=== PATIENT | male | born 1955 | race Caucasian/White ===

== ENCOUNTER → 2023-11-18 08:12 | Outpatient (REF) | payer OTHER, MEDICARE, SELFPAY ==
--- NOTE | 2023-11-18 09:35 | CARDSERVLU ---
Echocardiogram with Lumason completed after protocol screening completed. Allergies verified.
Patent IV site: _Left forearm 22 g PC inserted by IV team, site clear____
IV site flushed with 0.9% NaCl pre and post administration.
Diluted bolus method utilized to enhance visualization of ventricular gordon.
Total volume given: __2__ mL
Patient tolerated all procedures well without complications.
Heplock D/[place] at 0930, site clear, no redness, no edema. Pressure held, no bleeding, 2x2 applied and taped. No change in status.
== END ==
LOC: RCS 08:12
PROVIDERS: ATTENDING PHYSICIAN Internal Medicine Cardiovascular Disease; FAMILY PHYSICIAN Internal Medicine
DX: I23.6 Thrombosis of atrium, auricular appendage, and ventricle as current complications following acute myocardial infarction (principal)
CPT/HCPCS: 93307; Q9957

== ENCOUNTER → 2024-05-12 06:44 | Outpatient (REF) | payer OTHER, MEDICARE, SELFPAY | LOC: EMG 06:44 | PROVIDERS: ATTENDING PHYSICIAN Physician Assistant; FAMILY PHYSICIAN Nurse Practitioner Family | DX: M54.16 Radiculopathy, lumbar region (principal) | CPT/HCPCS: 95886; 95911 ==

== ENCOUNTER → 2024-07-14 11:35 | Outpatient (REF) | payer OTHER, MEDICARE, SELFPAY | LOC: DHCBC/DCA 11:35 | PROVIDERS: ATTENDING PHYSICIAN Internal Medicine; FAMILY PHYSICIAN Nurse Practitioner Family | DX: I25.118 Atherosclerotic heart disease of native coronary artery with other forms of angina pectoris (principal) | CPT/HCPCS: 78452; 93017; A9500; J2785 ==

== ENCOUNTER → 2024-07-15 14:21 | Outpatient (REF) | payer OTHER, MEDICARE, SELFPAY | LOC: RCS 14:21 | PROVIDERS: ATTENDING PHYSICIAN Internal Medicine | DX: I25.118 Atherosclerotic heart disease of native coronary artery with other forms of angina pectoris (principal) | CPT/HCPCS: 93306; 93356; Q9950 ==

== ENCOUNTER 2024-07-17 11:45 | Day surgery (SDC) | payer OTHER, MEDICARE, SELFPAY ==
[2024-07-17] VITALS (15 sets, daily range): BP systolic 94–133; BP diastolic 61–104; BMI 22.7
[2024-07-17 15:08] LABS: ACT-LR - POC 335 Seconds (116-155)
--- NOTE | 2024-07-17 15:25 | ITS.CL.CATH ---
[facility] - Catheterization
Cardiac Catheterization
Procedure Report:
CARDIAC CATHETERIZATION REPORT
Date of Procedure: 07/17/2024
Referring: Nav Soto MD
Indication: Worsening angina with markedly abnormal stress test
�
HEMODYNAMIC DATA
AO: 116/76
LV: 116/26
�
LEFT VENTRICULOGRAPHY: Severe anterolateral and apical hypokinesis with EF 38%
�
CORONARY ANGIOGRAPHY
Dominance: Right
Left Main: Normal
LAD: 99% stenosis within the previously placed proximal LAD stent (SHAYY 06/2023). There is DONNA grade II flow to the apical LAD
Circumflex: Mild luminal irregularities
RCA: Dominant vessel with mild luminal irregularities
Angioplasty: At the conclusion the diagnostic study, we proceeded with proximal LAD intervention. Heparin was used for anticoagulation. A 6F EBU 3.5 guide catheter was used. A BMW wire was advanced into the distal LAD. Direct stenting with a
2.75 x 12 Xience SHAYY deployed at 14 michela was followed by postdilatation with a 2.75 NC emerge to 17 michela. The final angiographic result was outstanding with no residual stenosis and DONNA grade III flow restored in the LAD. There were no procedural
complications
�
Closure Device: None-the procedure was performed via the right radial artery. Of note his pulse on the right was weak prior to the procedure and we were fortunate to be able to be used this as an access site. I would be surprised if the right
radial artery could be used for future procedures. Of note, I did not use the left radial artery as he is young and I did not want to cause scarring which could impede the use of the left radial as a future bypass conduit
�
Radiation (mGy): 290
DAP (cm2.Gy): 23.2
Fluoroscopy time: 4.5 minutes
�
CONCLUSIONS
1:�Severe anterolateral and apical hypokinesis with EF 38%
2:�Single-vessel CAD with 99% proximal LAD in-stent restenosis (sluggish antegrade flow)
3. Successful restenting of proximal LAD in-stent restenosis using 2.75 x 12 Xience SHAYY with outstanding angiographic result
4. Recommend dual antiplatelet therapy for an additional 6-12 months
�
�
Copy to: Nav Soto MD, Harini De Paz MD
�
Todd Thompson MD, [facility], [facility]
--- NOTE | 2024-07-17 16:57 | W.PN.UPDATE ---
Update Note
Progress Note Update
69 yo WM s/p PCI ISR LAD (same day). He denies cp, sob, alexx diet, R rad with TR band c/d/i, EKG no new ST changes. He will continue DAPT ASA/Plavix. Nitro sl provided and educated on use. Cardiac rehab c/s. He will f/u [facility] in 2 weeks. He is for d/c
home after 8pm if rad site stable.
CONCLUSIONS
1:�Severe anterolateral and apical hypokinesis with EF 38%
2:�Single-vessel CAD with 99% proximal LAD in-stent restenosis (sluggish antegrade flow)
3. Successful restenting of proximal LAD in-stent restenosis using 2.75 x 12 Xience SHAYY with outstanding angiographic result
4. Recommend dual antiplatelet therapy for an additional 6-12 months
�
�
Copy to: Nav Soto MD, Harini De Paz MD
[2024-07-17] MEDS: LIPITOR 40 MG PO (17:37)
[2024-07-17] MEDS: NSS 1000 IV (17:56)
[2024-07-17] MEDS: TOPROL XL 12.5 MG PO (18:03)
--- NOTE | 2024-07-17 19:27 | PTCARENOTE ---
Pt from cath recovery area post stent placement via right radial artery, radial band in place, no sign of bleeding or hematoma, removing air per protocol. telemetry shows sinus rhythm. Pt denies any discomfort, plan for discharge tonight after
radial band is removed.
--- NOTE | 2024-07-17 20:06 | PTCARENOTE ---
R Radial band removed at 0805 with no complications. Site covered with gauze and tegaderm. Education about activity restrictions discussed and pt verbalizes understanding. VSS, SR on tele with HR 80s. INT removed. Pt discharged with all
paperwork and belongings to home with .
== END 2024-07-17 20:14 | disposition home or self-care (01) ==
LOC: CATH 11:45
PROVIDERS: ATTENDING PHYSICIAN Internal Medicine Cardiovascular Disease; FAMILY PHYSICIAN Internal Medicine; OTHER PHYSICIAN Internal Medicine
DX: I25.110 Atherosclerotic heart disease of native coronary artery with unstable angina pectoris (principal); R94.39 Abnormal result of other cardiovascular function study; Z95.5 Presence of coronary angioplasty implant and graft; I11.0 Hypertensive heart disease with heart failure; I50.32 Chronic diastolic (congestive) heart failure; E78.5 Hyperlipidemia, unspecified; G47.33 Obstructive sleep apnea (adult) (pediatric); Z79.82 Long term (current) use of aspirin; Z79.02 Long term (current) use of antithrombotics/antiplatelets; Z79.84 Long term (current) use of oral hypoglycemic drugs
CPT/HCPCS: C1769; C1725; C1894; 85347; 93005; 93458; C1874; C9600; Q9967

== ENCOUNTER → 2024-08-04 07:06 | Outpatient (REF) | payer OTHER, MEDICARE, SELFPAY | LOC: RAD 07:06 | PROVIDERS: ATTENDING PHYSICIAN Internal Medicine; FAMILY PHYSICIAN Internal Medicine | DX: M79.604 Pain in right leg (principal); M79.605 Pain in left leg | CPT/HCPCS: 93922; 93925 ==

== ENCOUNTER 2024-08-25 08:40 | Outpatient (RCR) | payer OTHER, MEDICARE, SELFPAY | END 2024-08-25 23:59 | disposition home or self-care (01) | LOC: CRHB 08:40 | PROVIDERS: ATTENDING PHYSICIAN Internal Medicine | DX: I25.10 Atherosclerotic heart disease of native coronary artery without angina pectoris (principal); Z95.5 Presence of coronary angioplasty implant and graft | CPT/HCPCS: 93797; 93798 ==

== ENCOUNTER → 2024-08-27 07:12 | Outpatient (REF) | payer OTHER, MEDICARE, SELFPAY | LOC: HWRAD 07:12 | PROVIDERS: ATTENDING PHYSICIAN Nurse Practitioner Family | DX: E04.1 Nontoxic single thyroid nodule (principal); R79.89 Other specified abnormal findings of blood chemistry | CPT/HCPCS: 76536; 76700 ==

== ENCOUNTER → 2024-09-03 10:34 | Outpatient (REF) | payer OTHER, MEDICARE, SELFPAY | LOC: RAD 10:34 | PROVIDERS: ATTENDING PHYSICIAN Nurse Practitioner Family | DX: J90 Pleural effusion, not elsewhere classified (principal) | CPT/HCPCS: 71046 ==

== ENCOUNTER → 2024-09-11 09:46 | Outpatient (REF) | payer OTHER, MEDICARE, SELFPAY | LOC: RAD 09:46 | PROVIDERS: ATTENDING PHYSICIAN Nurse Practitioner Family | DX: J90 Pleural effusion, not elsewhere classified (principal) | CPT/HCPCS: 71046 ==

== ENCOUNTER 2024-09-15 06:07 | Day surgery (SDC) | payer OTHER, MEDICARE, SELFPAY ==
--- NOTE | 2024-09-10 16:23 | PTCARENOTE ---
Abn ECG, Dr. Farmer notified, no additional interventions requested.
--- NOTE | 2024-09-14 09:45 | PTCARENOTE ---
Asha in Dr. Paulino's office was made aware of pt's CXR results from 09/11/23.
--- NOTE | 2024-09-14 15:48 | PTCARENOTE ---
Abn CXR done 09/11, reviewed by Dr Segal, no additional intervention needed.
[2024-09-15] VITALS (26 sets, daily range): BP systolic 95–156; BP diastolic 59–102; BMI 22.9
[2024-09-15 07:07] LABS: Hematocrit 53.9 % (39.0-52.0); Hemoglobin 17.9 g/dL (13.0-18.0); Mean Corp Hgb Conc. 33.2 g/dL (33.0-37.0); Mean Corpuscular Hgb 30.5 pg (27.0-31.0); Mean Corpuscular Volume 91.8 fL (80.0-94.0); Mean Platelet Volume 12.6 fL (7.4-10.4); Platelet Count 158 10^3/uL (130-400); Red Blood Cell Count 5.87 10^6/uL (4.70-6.10); Red Cell Dist. Width 14.4 % (11.5-14.5)
[2024-09-15 07:14] LABS: PT 14.5 Sec (11.4-14.6)
[2024-09-15 07:15] LABS: APTT 27.5 Sec (23.4-35.0)
--- NOTE | 2024-09-15 07:45 | W.SUR.PREOP ---
Pre-Operative Surgical Note
-
I have examined this patient prior to the performance of the scheduled procedure.
The patient's condition is unchanged from the time of the current History and
Physical and the patient is able to undergo the scheduled procedure.
[2024-09-15 07:57] LABS: Blood Urea Nitrogen 22 mg/dl (9-20); Calcium 8.8 mg/dl (8.4-10.2); Carbon Dioxide 29 mmol/L (22-30); Chloride 103 mmol/L (98-107); Estimated Creatinine Clearance 77 ml/min; Glucose 87 mg/dl (70-99); Potassium 4.3 mmol/L (3.5-5.1); Sodium 141 mmol/L (135-145); eGFR > 60.00
--- NOTE | 2024-09-15 08:57 | W.IMMPOSTOP ---
Surgical Immed Post Op Note
-
Primary Surgeon: Lora
Assisting Surgeon: Monica
Pre-op Diagnosis: Chronic limb threatening ischemia
Post-op Diagnosis: Chronic limb threatening ischemia
Procedure Performed: Diagnostic LLE angio, R fem access
Anesthesia Type: Sedation/local
Specimen / Cultures: None
Estimated Blood Loss: 2 cc
Complications: None
Operative Findings: Chronically occluded popliteal, patent fem/SFA with reconstitution of PT, AT, peroneal
--- NOTE | 2024-09-15 10:51 | OR.RPT ---
Operative Report
Operative Report
Date of Operation: 09/15/2024
Pre Op Diagnosis: Chronic limb threatening ischemia of the left lower extremity manifested by numbness and paresthesias of the left foot and toes
Post Op Diagnosis: Chronic limb threatening ischemia of the left lower extremity manifested by numbness and paresthesias of the left foot and toes
Procedure:
1.) Selective catheterization of third order lower extremity artery
2.) Diagnostic aortobiiliac arteriogram
3.) Diagnostic left lower extremity arteriogram
4.) Ultrasound-guided percutaneous access to the right common femoral artery
Surgeon: Paul Paulino III, MD
Oil Laboratory Analyst: Johnathan Anderson MD PGY1
Anesthesia: Sedation with local
Fluoroscopy:
7.5 min
42 mGy
14.42 Gy.cm2
Complications: None
Estimated Blood Loss: Less than 10 cc
History and Indications for Procedure: 69-year-old male with left lower extremity arterial disease and worsening numbness and paresthesias of the left foot and toes coupled with abnormal noninvasive arterial studies.
Procedure in Detail: Teodoro Neely was correctly identified and placed supine on the operating table. After adequate induction of anesthesia the bilateral groins were prepped and draped in the usual sterile fashion. A timeout was performed with the
nursing and anesthesia staff confirming the patient's identity as well as the nature and laterality of the procedure.
The right common femoral artery was identified under ultrasound guidance. The artery was patent. The superior and inferior aspects of the femoral head were identified with radiographic guidance and marked at the skin level. The proposed puncture
site was infiltrated with local anesthesia. Under ultrasound guidance we accessed the right common femoral artery with a micropuncture needle and upsized to a 5 Fr sheath over a Bentson wire. The wire and a [employer] hook flush catheter were
advanced into the distal abdominal aorta and a diagnostic aorto-biiliac arteriogram was performed:
AORTO-ILIAC ARTERIOGRAM:
Aorta: Patent with no stenosis identified
Right common iliac artery: Patent with no stenosis identified
Right external iliac artery: Patent with no stenosis identified
Left common iliac artery: Patent with no stenosis identified
Left external iliac artery: Patent with no stenosis identified
Under roadmap guidance using a Glidewire and the [employer] hook catheter we selected the left common iliac artery and then the external iliac artery. A crossing catheter was tracked up and over the aortic bifurcation and placed in the distal
external iliac artery. A diagnostic left lower extremity arteriogram was then performed which demonstrated the following:
LEFT LOWER EXTREMITY:
Common femoral artery:Patent with no stenosis identified
Profunda femoral artery: Patent with no stenosis identified. Well-developed robust distal branch work network in the thigh.
Superficial femoral artery: Patent proximally but occluded in the mid thigh. No distal reconstitution
Popliteal artery: Occluded above, behind and below the knee
Anterior tibial artery: Reconstitutes in its proximal aspect. Widely patent throughout the remainder of its course. Continues across the ankle to form the dorsalis pedis artery.
Tibioperoneal trunk: Occluded
Peroneal artery: Reconstitutes in its proximal segment. Patent to the ankle
Posterior tibial artery: Reconstitutes in its proximal segment. Midportion with areas of stenosis. Patent at the ankle without stenosis and continues into the foot
Satisfied with this diagnostic result we concluded the procedure. The catheter was pulled from the 5 English sheath. The 5 English sheath was secured in place with the plan to pull it in the recovery area.
The patient tolerated the procedure well and was taken to the recovery area in stable condition.
Attestation: I was present and responsible for the entire procedure.
Signed:
Paul Paulino III, MD
[facility]
[phone] (twkw)
== END 2024-09-15 14:23 | disposition home or self-care (01) ==
LOC: CATH 06:07
PROVIDERS: ATTENDING PHYSICIAN Surgery Vascular Surgery; FAMILY PHYSICIAN Nurse Practitioner Family; OTHER PHYSICIAN Internal Medicine
DX: I70.222 Atherosclerosis of native arteries of extremities with rest pain, left leg (principal); I11.0 Hypertensive heart disease with heart failure; R20.2 Paresthesia of skin; I50.32 Chronic diastolic (congestive) heart failure; Z79.82 Long term (current) use of aspirin; Z79.02 Long term (current) use of antithrombotics/antiplatelets; Z79.84 Long term (current) use of oral hypoglycemic drugs; Z79.899 Other long term (current) drug therapy
CPT/HCPCS: 36247; 75716; 75625; 80048; 85027; 85610; 85730; 93970; C1769; C1894

== ENCOUNTER → 2024-09-22 12:05 | Outpatient (REF) | payer OTHER, MEDICARE, SELFPAY ==
[2024-09-22 12:20] VITALS: BP 130/86; BP_SYST 94
[2024-09-22 13:10] VITALS: BP 108/62; BP_SYST 94
[2024-09-22 13:20] VITALS: BP 121/75; BP_SYST 92
[2024-09-22 13:30] VITALS: BP 121/75
[2024-09-22 14:04] LABS: Body Fluid pH 7.48
[2024-09-22 14:10] LABS: Body Fluid Mononuclear 96.4 %; Body Fluid Polymorphonuclear 3.6 %; Body Fluid WBC 367 /CUMM
[2024-09-22 14:11] LABS: Body Fluid Glucose 96 mg/dl; Body Fluid LDH < 90 U/L; Body Fluid Protein 2.2 g/dl
[2024-09-22 14:17] LABS: Body Fluid Second Tech AMA
== END ==
LOC: RADI 12:05
PROVIDERS: ATTENDING PHYSICIAN Nurse Practitioner Adult Health
DX: J90 Pleural effusion, not elsewhere classified (principal)
CPT/HCPCS: 88305; 32555; 71045; 82945; 83615; 83986; 84157; 87015; 87070; 87102; 87116; 87205; 87206; 88112; 89051

== ENCOUNTER 2024-09-24 09:35 | Outpatient (RCR) | payer OTHER, MEDICARE, SELFPAY | END 2024-09-24 23:59 | disposition home or self-care (01) | LOC: CRHB 09:35 | PROVIDERS: ATTENDING PHYSICIAN Internal Medicine; FAMILY PHYSICIAN Internal Medicine | DX: I25.10 Atherosclerotic heart disease of native coronary artery without angina pectoris (principal); Z95.5 Presence of coronary angioplasty implant and graft | CPT/HCPCS: 93797; 93798; G0422; G0423 ==

== ENCOUNTER 2024-10-08 08:40 | Outpatient (RCR) | payer OTHER, MEDICARE, SELFPAY | END 2024-10-08 23:59 | disposition home or self-care (01) | LOC: CRHB 08:40 | PROVIDERS: ATTENDING PHYSICIAN Internal Medicine; FAMILY PHYSICIAN Internal Medicine | DX: I25.10 Atherosclerotic heart disease of native coronary artery without angina pectoris (principal); Z95.5 Presence of coronary angioplasty implant and graft | CPT/HCPCS: 93797; 93798 ==

== ENCOUNTER → 2024-10-09 13:49 | Outpatient (REF) | payer OTHER, MEDICARE, SELFPAY | LOC: RCS 13:49 | PROVIDERS: ATTENDING PHYSICIAN Internal Medicine Cardiovascular Disease; FAMILY PHYSICIAN Nurse Practitioner Family | DX: I25.10 Atherosclerotic heart disease of native coronary artery without angina pectoris (principal); I10 Essential (primary) hypertension; E78.2 Mixed hyperlipidemia; J90 Pleural effusion, not elsewhere classified; Z95.5 Presence of coronary angioplasty implant and graft; I31.39 Other pericardial effusion (noninflammatory) | CPT/HCPCS: 93306 ==

== ENCOUNTER → 2024-10-20 12:35 | Outpatient (REF) | payer OTHER, MEDICARE, SELFPAY ==
[2024-10-20 12:50] VITALS: BP 124/76; BP_SYST 74
[2024-10-20 14:11] LABS: Body Fluid pH 7.49
[2024-10-20 14:20] VITALS: BP 124/75
[2024-10-20 14:25] LABS: Body Fluid Glucose 100 mg/dl; Body Fluid LDH 109 U/L; Body Fluid Protein 2.7 g/dl
[2024-10-20 14:42] LABS: Body Fluid Mononuclear 96.3 %; Body Fluid Polymorphonuclear 3.7 %; Body Fluid WBC 403 /CUMM
[2024-10-20 14:44] LABS: Body Fluid Second Tech CMB
== END ==
LOC: RADI 12:35
PROVIDERS: ATTENDING PHYSICIAN Internal Medicine Critical Care Medicine; FAMILY PHYSICIAN Nurse Practitioner Family
DX: J90 Pleural effusion, not elsewhere classified (principal)
CPT/HCPCS: 88305; 32555; 71045; 82945; 83615; 83986; 84157; 87015; 87070; 87102; 87116; 87205; 87206; 88112; 89051

== ENCOUNTER → 2024-10-23 09:22 | Outpatient (REF) | payer OTHER, MEDICARE, SELFPAY | LOC: HWRAD 09:22 | PROVIDERS: ATTENDING PHYSICIAN Internal Medicine Critical Care Medicine; FAMILY PHYSICIAN Internal Medicine | DX: J90 Pleural effusion, not elsewhere classified (principal); R06.02 Shortness of breath | CPT/HCPCS: 71250 ==

== ENCOUNTER → 2024-11-13 07:56 | Outpatient (REF) | payer OTHER, MEDICARE, SELFPAY | LOC: HWRAD 07:56 | PROVIDERS: ATTENDING PHYSICIAN Internal Medicine Critical Care Medicine; FAMILY PHYSICIAN Internal Medicine | DX: J90 Pleural effusion, not elsewhere classified (principal); R06.02 Shortness of breath | CPT/HCPCS: 71046 ==

== ENCOUNTER → 2024-12-11 08:12 | Outpatient (REF) | payer OTHER, MEDICARE, SELFPAY | LOC: HWRAD 08:12 | PROVIDERS: ATTENDING PHYSICIAN Nurse Practitioner Family; REFERRING PHYSICIAN Internal Medicine Critical Care Medicine | DX: J90 Pleural effusion, not elsewhere classified (principal) | CPT/HCPCS: 71046 ==

== ENCOUNTER → 2024-12-15 11:52 | Outpatient (REF) | payer OTHER, MEDICARE, SELFPAY | LOC: MRI 3T 11:52 | PROVIDERS: ATTENDING PHYSICIAN Internal Medicine Gastroenterology; FAMILY PHYSICIAN Internal Medicine | DX: R79.89 Other specified abnormal findings of blood chemistry (principal) | CPT/HCPCS: 74183; A9575 ==

== ENCOUNTER → 2025-05-07 10:45 | Outpatient (REF) | payer OTHER, MEDICARE, SELFPAY | LOC: RAD 10:45 | PROVIDERS: ATTENDING PHYSICIAN Surgery Vascular Surgery; FAMILY PHYSICIAN Nurse Practitioner Family | DX: I70.222 Atherosclerosis of native arteries of extremities with rest pain, left leg (principal) | CPT/HCPCS: 93922; 93925 ==